=== PATIENT | male | born 1945 | race Caucasian/White ===

== ENCOUNTER 2017-03-24 00:07 | Inpatient (IN) | payer BC, OTHER ==
[~2017-03-24] VITALS: Ht 177.8 cm; Wt 66.2 kg
[~2017-03-24 00:07] MED LIST: LEVO112T5 PO
[2017-03-24 00:20] VITALS: BP_SYST 131
--- NOTE | 2017-03-24 00:20 | NUR ---
Patient to ER bed 4 to gown for evaluation. Side rails up. Report given to MICAELA Chavis.
--- NOTE | 2017-03-24 00:23 | NUR ---
ER at bedside examining patient.
[2017-03-24] MEDS ORDERED: KETOROLAC TROMETHAMINE 30 MG VIAL IVP ONE (00:30)
[2017-03-24] MEDS ORDERED: ONDANSETRON HCL 4 MG/2 ML VIAL IVP ONE (00:30)
[2017-03-24] MEDS ORDERED: NACL 0.9% 1,000 ML IV ONE (00:30)
--- NOTE | 2017-03-24 01:00 | NUR ---
# 18 FR Mina catheter with use of sterile technique. Immediate return of 200 cc bloody urine noted. Bedside drainage bag placed below level of bladder. Urine sample collected and sent to lab. Pt tolerated procedure well. Patient unable to toilet self.
--- NOTE | 2017-03-24 01:00 | NUR ---
Pt stated that he has been unable to urinate enough to empty bladder, for a few hours. Bladder is distended, Pt is feeling full. The little bit of urine that he is passing is bloody. He does have a history of BPH.
[2017-03-24 01:03] LABS: BASOPHILS % (AUTO) 0.4 % (0.0-2.0); EOSINOPHILS # (AUTO) 0.1 K/uL (0.0-0.4); EOSINOPHILS % (AUTO) 0.7 % (0.0-4.0); HEMATOCRIT 42.3 % (36-54); HEMOGLOBIN 14.6 g/dL (14.0-18.0); LYMPHOCYTES # (AUTO) 0.3 K/uL (1.0-5.5); LYMPHOCYTES % (AUTO) 3.4 % (20.5-51.5); MEAN CORPUSCULAR HEMOGLOBIN 31 pg (27-31); MEAN CORPUSCULAR HGB CONC 35 % (32-36); MEAN CORPUSCULAR VOLUME 89 fL (79.0-98.0); MONOCYTES # (AUTO) 0.2 K/uL (0.0-1.0); MONOCYTES % (AUTO) 2.3 % (1.7-9.3); NEUTROPHILS # (AUTO) 8.8 K/uL (1.8-7.7); NEUTROPHILS % (AUTO) 93.2 % (40.0-70.0); PLATELET COUNT (AUTO) 214 K/uL (130-430); RED BLOOD CELL COUNT(AUTO) 4.78 MIL/uL (4.2-6.2); RED CELL DISTRIBUTION WIDTH 12.5 % (9.0-15.0); WHITE BLOOD COUNT (AUTO) 9.4 K/uL (4.8-10.8)
[2017-03-24 01:12] LABS: ANION GAP 8 (5-15); CALCIUM 9.4 mg/dL (8.4-11.0); CHLORIDE 103 mmol/L (98-107); CREATININE 1.33 mg/dL (0.55-1.30); GLUCOSE 149 mg/dL (70-99); POTASSIUM 3.6 mmol/L (3.5-5.1); SODIUM SERUM 138 mmol/L (136-145); UREA NITROGEN, BLOOD 22 mg/dL (8-21)
[2017-03-24 01:17] LABS: ALANINE AMINOTRANSFERASE 22 U/L (12-78); ALBUMIN 4.2 g/dL (3.4-4.8); ASPARTATE AMINOTRANSFERASE 23 U/L (10-37); TOTAL BILIRUBIN 0.6 mg/dL (0.0-1.0)
[2017-03-24 01:28] LABS: BILIRUBIN,URINE NEGATIVE (NEGATIVE); BLOOD, URINE 3+ (NEGATIVE); COLOR,URINE RED (YELLOW); GLUCOSE,URINE NEGATIVE (NEGATIVE); KETONES,URINE NEGATIVE (NEGATIVE); LEUKOCYTE ESTERASE ,URINE NEGATIVE (NEGATIVE); NITRITE, URINE NEGATIVE (NEGATIVE); PROTEIN URINE 3+ (NEGATIVE); UROBILINOGEN,URINE 0.2 (0.2-1.0)
[2017-03-24 01:31] LABS: CLARITY/URINE BLOODY (CLEAR)
[2017-03-24 01:32] LABS: BACTERIA,URINE RARE /HPF (None Seen); MUCUS,URINE None Seen /LPF (None Seen); RBC,URINE >100 /HPF (0-3); WBC,URINE 0-3 /HPF (0-3)
--- NOTE | 2017-03-24 01:55 | NUR ---
Pt starting to feel pressure in bladder, duke irrigated with 40ml of NS X 2, small amount of clotts noted.
[2017-03-24] MEDS ORDERED: LORazepam 2 MG/ML VIAL (FOR ER USE) IVP ONE (02:45)
--- NOTE | 2017-03-24 03:30 | NUR ---
Patient will be admitted to care of Dr Mina. Admitted to Med/Surg unit. Will go to room 135A. Belongings list completed. Summary report printed. Report will be given at bedside.
--- NOTE | 2017-03-24 03:42 | NUR ---
ADMISSION NOTE Received patient from ER via [facility]elsa, received report from Palmira HINOJOSA. Patient admitted with diagnosis of hematuria. Patient oriented to hospital routine, call light, toileting and safety-patient verbalized understanding.
--- NOTE | 2017-03-24 03:50 | NUR ---
Bladder Irrigation/Hygiene Pt arrived from ER with Mina cath in place. Output from Mina cath moderate and bloody with small amount of blood clots seen. Pt's gown, both thighs, buttocks and bed linen also heavily soiled with blood. Manual bladder irrigation done with normal saline utilizing sterile technique. Large amount of blood clots aspirated multiple times. Mina cath was irrigated with approximately 600ml normal saline until no more blood clots seen and output pinkish. Pt drowsy and easily arousable. Pt tolerated bladder irrigation well. Pt was given partial bed bath and compete linen change done including pt's gown.
--- NOTE | 2017-03-24 03:58 | NUR ---
Consultation Paged Reason for consultation: Hematuria Was consult called: Yes Person who was notified: Hemalatha Consulting Physician: Stephane Schroeder Psychologist Experimental Specialty: Urology Psychologist Experimental Ordered By: Dr Mina
[2017-03-24 04:32] VITALS: BP_SYST 125
--- NOTE | 2017-03-24 05:00 | NUR ---
Rounds Pt is sleeping and easily arousable. Mina cath is draining bloody urine but no blood clots seen. IVF is infusing well in LFA.
--- NOTE | 2017-03-24 06:05 | NUR ---
Transfer to Room 132B Pt got out of bed and set off the bed alarm. Pt was found standing on the edge of his bed pulling on his catheter. Pt was assisted back to bed and transferred from Room 130A to 132B for closer monitoring across from Nurses' station. Bed alarm was turned on and three side rails up. Call light was given to pt who was instructed to call for assistance as needed and pt verbalized understanding.
--- NOTE | 2017-03-24 06:20 | NUR ---
Dr. Keeley Mina here to see pt.
[2017-03-24] MEDS ORDERED: ONDANSETRON HCL 4 MG/2 ML VIAL IVP PRN (06:30)
[2017-03-24] MEDS ORDERED: ACETAMINOPHEN 325 MG TABLET PO PRN (06:30)
--- NOTE | 2017-03-24 06:40 | NUR ---
Closing Note Pt is resting comfortably in bed. All pt's needs were attended to. No fall or injury noted this shift. Will endorse to day shift nurse.
[2017-03-24] MEDS: LEVOTHYROXINE SODIUM 0.112 MG TABLET PO SCH (07:00)
--- NOTE | 2017-03-24 07:05 | NUR ---
Pain Pt c/o pain in lower abdomen. Pt informed MD will be paged.
--- NOTE | 2017-03-24 07:08 | NUR ---
MD THOMPSON CALLED [facility] AT [phone] SPOKE WITH ADELFO.
--- NOTE | 2017-03-24 07:24 | NUR ---
Dr. Calli Hager New IV pain med order received from Dr. Calli Hager. Endorsed to day shift nurse.
[2017-03-24 07:28] LABS: BASOPHILS # (AUTO) 0.1 K/uL (0.0-0.2); BASOPHILS % (AUTO) 0.8 % (0.0-2.0); EOSINOPHILS % (AUTO) 0.1 % (0.0-4.0); HEMATOCRIT 33.9 % (36-54); HEMOGLOBIN 11.4 g/dL (14.0-18.0); LYMPHOCYTES # (AUTO) 0.4 K/uL (1.0-5.5); LYMPHOCYTES % (AUTO) 4.9 % (20.5-51.5); MEAN CORPUSCULAR HEMOGLOBIN 30 pg (27-31); MEAN CORPUSCULAR HGB CONC 34 % (32-36); MEAN CORPUSCULAR VOLUME 90 fL (79.0-98.0); MONOCYTES # (AUTO) 0.3 K/uL (0.0-1.0); MONOCYTES % (AUTO) 3.9 % (1.7-9.3); NEUTROPHILS # (AUTO) 6.6 K/uL (1.8-7.7); NEUTROPHILS % (AUTO) 90.3 % (40.0-70.0); PLATELET COUNT (AUTO) 183 K/uL (130-430); RED BLOOD CELL COUNT(AUTO) 3.76 MIL/uL (4.2-6.2); RED CELL DISTRIBUTION WIDTH 12.3 % (9.0-15.0); WHITE BLOOD COUNT (AUTO) 7.4 K/uL (4.8-10.8)
[2017-03-24] MEDS ORDERED: MORPHINE 2 MG/ML INJ. SYRINGE IVP PRN (07:30)
[2017-03-24 07:38] LABS: ANION GAP 5 (5-15); CALCIUM 8.5 mg/dL (8.4-11.0); CHLORIDE 106 mmol/L (98-107); GLUCOSE 146 mg/dL (70-99); PHOSPHORUS 4.8 mg/dL (2.7-4.5); POTASSIUM 4.5 mmol/L (3.5-5.1); SODIUM SERUM 138 mmol/L (136-145); UREA NITROGEN, BLOOD 24 mg/dL (8-21)
--- NOTE | 2017-03-24 10:36 | NUR ---
MD THOMPSON CALLED [facility] AT [phone]KHAN COPPOLA AMEREEN WELLNESS INSTRUCTOR.
[2017-03-24] MEDS: PANTOPRAZOLE SODIUM 40 MG/VIAL (PROTONIX) IVP SCH (11:28)
[2017-03-24] MEDS: D5/0.45 NS 1,000 ML IV SCH ×2 (11:29→22:44)
[2017-03-24] MEDS: cefTRIAXone 1 GM IVPB PREMIX 50 ML IV SCH (11:29)
[2017-03-24 11:50] LABS: BASOPHILS % (AUTO) 0.2 % (0.0-2.0); EOSINOPHILS % (AUTO) 0.3 % (0.0-4.0); HEMATOCRIT 32.9 % (36-54); HEMOGLOBIN 10.9 g/dL (14.0-18.0); LYMPHOCYTES # (AUTO) 0.3 K/uL (1.0-5.5); LYMPHOCYTES % (AUTO) 5.3 % (20.5-51.5); MEAN CORPUSCULAR HEMOGLOBIN 30 pg (27-31); MEAN CORPUSCULAR HGB CONC 33 % (32-36); MEAN CORPUSCULAR VOLUME 90 fL (79.0-98.0); MONOCYTES # (AUTO) 0.4 K/uL (0.0-1.0); MONOCYTES % (AUTO) 6.5 % (1.7-9.3); NEUTROPHILS # (AUTO) 5.5 K/uL (1.8-7.7); NEUTROPHILS % (AUTO) 87.7 % (40.0-70.0); PLATELET COUNT (AUTO) 187 K/uL (130-430); RED BLOOD CELL COUNT(AUTO) 3.67 MIL/uL (4.2-6.2); RED CELL DISTRIBUTION WIDTH 12.5 % (9.0-15.0); WHITE BLOOD COUNT (AUTO) 6.2 K/uL (4.8-10.8)
[2017-03-24 12:07] VITALS: BP_SYST 154
[2017-03-24 16:17] VITALS: BP_SYST 100
[2017-03-24 19:00] VITALS: BP_SYST 105
[2017-03-24 19:11] LABS: BASOPHILS % (AUTO) 0.4 % (0.0-2.0); EOSINOPHILS # (AUTO) 0.1 K/uL (0.0-0.4); EOSINOPHILS % (AUTO) 0.8 % (0.0-4.0); HEMATOCRIT 29.6 % (36-54); HEMOGLOBIN 9.7 g/dL (14.0-18.0); LYMPHOCYTES # (AUTO) 0.5 K/uL (1.0-5.5); LYMPHOCYTES % (AUTO) 6.9 % (20.5-51.5); MEAN CORPUSCULAR HEMOGLOBIN 30 pg (27-31); MEAN CORPUSCULAR HGB CONC 33 % (32-36); MEAN CORPUSCULAR VOLUME 91 fL (79.0-98.0); MONOCYTES # (AUTO) 0.4 K/uL (0.0-1.0); MONOCYTES % (AUTO) 6.3 % (1.7-9.3); NEUTROPHILS # (AUTO) 5.6 K/uL (1.8-7.7); NEUTROPHILS % (AUTO) 85.6 % (40.0-70.0); PLATELET COUNT (AUTO) 179 K/uL (130-430); RED BLOOD CELL COUNT(AUTO) 3.25 MIL/uL (4.2-6.2); RED CELL DISTRIBUTION WIDTH 12.4 % (9.0-15.0); WHITE BLOOD COUNT (AUTO) 6.6 K/uL (4.8-10.8)
[2017-03-24 20:00] VITALS: BP_SYST 105
--- NOTE | 2017-03-24 20:03 | NUR ---
HANDOFF ROUNDS WITH NOC NURSE. PATIENT CLEAR WITH PINK COLOR THROUGHOUT IN URINE. NEEDS NEW CBI BAG AT THIS TIME.
[2017-03-25] VITALS: BP_SYST 104
[2017-03-25] MEDS: D5/0.45 NS 1,000 ML IV SCH (02:45)
[2017-03-25 02:47] LABS: BASOPHILS % (AUTO) 0.4 % (0.0-2.0); EOSINOPHILS # (AUTO) 0.1 K/uL (0.0-0.4); EOSINOPHILS % (AUTO) 2.4 % (0.0-4.0); HEMATOCRIT 25.5 % (36-54); HEMOGLOBIN 8.6 g/dL (14.0-18.0); LYMPHOCYTES # (AUTO) 0.5 K/uL (1.0-5.5); LYMPHOCYTES % (AUTO) 10.1 % (20.5-51.5); MEAN CORPUSCULAR HEMOGLOBIN 31 pg (27-31); MEAN CORPUSCULAR HGB CONC 34 % (32-36); MEAN CORPUSCULAR VOLUME 91 fL (79.0-98.0); MONOCYTES # (AUTO) 0.4 K/uL (0.0-1.0); MONOCYTES % (AUTO) 7.6 % (1.7-9.3); NEUTROPHILS % (AUTO) 79.5 % (40.0-70.0); PLATELET COUNT (AUTO) 150 K/uL (130-430); RED BLOOD CELL COUNT(AUTO) 2.82 MIL/uL (4.2-6.2); RED CELL DISTRIBUTION WIDTH 12.5 % (9.0-15.0)
[2017-03-25 04:00] VITALS: BP_SYST 91
[2017-03-25 06:48] LABS: ANION GAP 1 (5-15); CALCIUM 7.6 mg/dL (8.4-11.0); CHLORIDE 108 mmol/L (98-107); CREATININE 1.11 mg/dL (0.55-1.30); GLUCOSE 113 mg/dL (70-99); POTASSIUM 4.1 mmol/L (3.5-5.1); SODIUM SERUM 138 mmol/L (136-145); UREA NITROGEN, BLOOD 21 mg/dL (8-21)
[2017-03-25 06:52] LABS: BASOPHILS % (AUTO) 0.5 % (0.0-2.0); EOSINOPHILS # (AUTO) 0.2 K/uL (0.0-0.4); EOSINOPHILS % (AUTO) 2.8 % (0.0-4.0); HEMATOCRIT 24.1 % (36-54); HEMOGLOBIN 8.3 g/dL (14.0-18.0); LYMPHOCYTES # (AUTO) 0.6 K/uL (1.0-5.5); LYMPHOCYTES % (AUTO) 10.9 % (20.5-51.5); MEAN CORPUSCULAR HEMOGLOBIN 31 pg (27-31); MEAN CORPUSCULAR HGB CONC 34 % (32-36); MEAN CORPUSCULAR VOLUME 91 fL (79.0-98.0); MONOCYTES # (AUTO) 0.4 K/uL (0.0-1.0); NEUTROPHILS # (AUTO) 4.2 K/uL (1.8-7.7); NEUTROPHILS % (AUTO) 78.8 % (40.0-70.0); PLATELET COUNT (AUTO) 144 K/uL (130-430); RED BLOOD CELL COUNT(AUTO) 2.66 MIL/uL (4.2-6.2); RED CELL DISTRIBUTION WIDTH 12.4 % (9.0-15.0); WHITE BLOOD COUNT (AUTO) 5.4 K/uL (4.8-10.8)
[2017-03-25] MEDS: LEVOTHYROXINE SODIUM 0.112 MG TABLET PO SCH (07:00)
[2017-03-25 08:54] VITALS: BP_SYST 115
--- NOTE | 2017-03-25 09:17 | NUR ---
Nutrition Update Gianni Scale 16 noted. Pt admitted for hematuria. Diet: regular BMI: 20.9 kg/m2 RD to follow per nutrition care standards.
--- NOTE | 2017-03-25 09:30 | NUR ---
Patient request for hep lock of IV as he is moving and tolerating liquids. Patient request to go home and return to work today. Patient urine is yellow and clear. Breakfast intake is 100%.
[2017-03-25] MEDS: cefTRIAXone 1 GM IVPB PREMIX 50 ML IV SCH (10:28)
[2017-03-25] MEDS: PANTOPRAZOLE SODIUM 40 MG/VIAL (PROTONIX) IVP SCH (10:28)
--- NOTE | 2017-03-25 10:45 | NUR ---
Clearance received from urology for discharge.
[2017-03-25 12:29] LABS: BASOPHILS % (AUTO) 0.6 % (0.0-2.0); EOSINOPHILS # (AUTO) 0.2 K/uL (0.0-0.4); EOSINOPHILS % (AUTO) 2.5 % (0.0-4.0); HEMATOCRIT 26.4 % (36-54); HEMOGLOBIN 9.3 g/dL (14.0-18.0); LYMPHOCYTES # (AUTO) 0.4 K/uL (1.0-5.5); LYMPHOCYTES % (AUTO) 6.3 % (20.5-51.5); MEAN CORPUSCULAR HEMOGLOBIN 31 pg (27-31); MEAN CORPUSCULAR HGB CONC 35 % (32-36); MEAN CORPUSCULAR VOLUME 89 fL (79.0-98.0); MONOCYTES # (AUTO) 0.3 K/uL (0.0-1.0); NEUTROPHILS # (AUTO) 6.1 K/uL (1.8-7.7); NEUTROPHILS % (AUTO) 85.6 % (40.0-70.0); PLATELET COUNT (AUTO) 176 K/uL (130-430); RED BLOOD CELL COUNT(AUTO) 2.97 MIL/uL (4.2-6.2); RED CELL DISTRIBUTION WIDTH 12.9 % (9.0-15.0)
[2017-03-25 12:32] VITALS: BP_SYST 114
--- NOTE | 2017-03-25 13:55 | NUR ---
Patient ambulating the hallway. Notified health underwriter paged for d/c orders.
--- NOTE | 2017-03-25 14:00 | NUR ---
Doctor Keeley and Doctor Alley page return to clarification operator of [employer]. Both note it is not their patient.
--- NOTE | 2017-03-25 14:26 | NUR ---
PATIENT REQUEST FOR D/C HONORED BY FOR THE STABLE PATIENT. PATIENT TO FOLLOW UP WITH UROLOGY.
[2017-03-25] MEDS ORDERED: DOCUSATE SODIUM 100 MG/10 ML UDC PO ONE (14:30)
[2017-03-25 14:43] VITALS: BP_SYST 114
--- NOTE | 2017-03-25 15:09 | NUR ---
IV catheter removed. Patient ID band removed. Mina in place. Education on day bag placement and cleansing. Question from patient about flushing supplies. Call to provider to discuss needs prior to office visit.
[2017-03-25 16:16] VITALS: BP_SYST 131
--- NOTE | 2017-03-25 16:34 | NUR ---
D/C Patient Patient given medication reconciliation form and D/C instructions. Exit Care provided. Patient verbalized understanding. Ambulatory with steady gait for discharge to home. Patient in stable condition, Patient educated to see Doctor Juanjose. Says he will call Doctor Rivera his partner for follow up. Charge nurse instructed typewriters functional tester to teach flush and provide supplies if patient has a clot in duke. Sisal Operator provided instruction and patient verbalized understanding of transition to home. All belongings sent with patient.
== END 2017-03-25 16:30 | disposition home or self-care (01) | DRG 726 ==
LOC: SED 00:07 → SMU 03:17
PROVIDERS: ADMIT Internal Medicine; ATTEND Internal Medicine
DX: N40.0 Benign prostatic hyperplasia without lower urinary tract symptoms (principal); N17.9 Acute kidney failure, unspecified; E03.9 Hypothyroidism, unspecified; N18.9 Chronic kidney disease, unspecified; Z79.899 Other long term (current) drug therapy; Z90.79 Acquired absence of other genital organ(s)
CPT/HCPCS: 36415; 80048; 80053; 81000-TC; 83735-TC; 84100-TC; 85025; 86886; 86900; 86901; 96361; 96374; 96375; 99285; C9113; J0696; J1885; J2060; J2270; J2405; J7030